=== PATIENT | male | born 1940 | race Caucasian/White ===

== ENCOUNTER 2021-10-26 06:26 | Day surgery (SDC) | payer OTHER ==
[2021-10-22 08:55] LABS: BASOPHILS % (AUTO) 0.9 % (0.0-5.0); EOSINOPHILS % (AUTO) 3.2 % (0.0-8.0); HEMATOCRIT 35.1 % (42-54); LYMPHOCYTES % (AUTO) 12.6 % (21.0-51.0); MEAN CORPUSCULAR HEMOGLOBIN 30.2 pg (27.0-33.0); MEAN CORPUSCULAR HGB CONC 31.1 g/dL (32.0-36.0); MEAN CORPUSCULAR VOLUME 97.2 fL (79-99); MONOCYTES % (AUTO) 10.2 % (3.0-13.0); NEUTROPHILS % (AUTO) 72.8 % (40.0-77.0); PLATELET COUNT (AUTO) 105 K/uL (130-400); RED BLOOD CELL COUNT(AUTO) 3.61 MIL/uL (4.50-6.20); RED CELL DISTRIBUTION WIDTH 14.6 % (11.0-15.5); WHITE BLOOD COUNT (AUTO) 3.4 K/uL (4.8-10.8)
[2021-10-22 09:08] LABS: CREATININE 1.1 mg/dL (0.5-1.5); POTASSIUM 4.2 mmol/L (3.5-5.1)
[2021-10-22 09:10] LABS: INR 2.67 (0.85-1.15); PROTHROMBIN TIME 26.6 SEC (9.6-11.6)
[2021-10-22 09:11] LABS: PARTIAL THROMBOPLASTIN TIME 38.2 SEC (26.3-35.5)
[2021-10-25 10:31] VITALS: BP 114/59
[~2021-10-26] VITALS: Ht 177.8 cm; Wt 67.6 kg
[2021-10-26] VITALS (20 sets, daily range): BP systolic 90–151; BP diastolic 52–98
[~2021-10-26 06:26] MED LIST: 0.9% NACL 500ML IV.SOLN 500 ML IV SCH; AMIO200T68 PO; ATOR40TA69 PO; CETI10TA57 PO; DOXA4TAB3 PO; GABA300C PO; METF750T46 PO; VITAMIN B12 PO; WARF-57 PO; WARF2.5T85 PO; [UNRECOGNIZED DRUG - OTHER] PO
[2021-10-26] MEDS ORDERED: 0.9%NACL 1000ML 1,000 ML IV ONE (07:00)
[2021-10-26] MEDS ORDERED: SUCCINYLCHOLINE 200MG/10ML SYR ONE (07:15)
[2021-10-26] MEDS ORDERED: PROPOFOL 10 MG/ML 20ML VIAL IV ONE ×2 (07:15→07:29)
[2021-10-26] MEDS ORDERED: LIDOCAINE PF 100MG/5ML (2%) SYRINGE 5ML ONE (07:15)
[2021-10-26] MEDS ORDERED: EPHEDRINE SULFATE 50 MG/ML AMPULE ONE (07:15)
[2021-10-26] MEDS ORDERED: FENTANYL CITRATE PF 50 MCG/1 ML 2ML VIAL ONE (07:16)
== END 2021-10-26 09:50 | disposition home or self-care (01) ==
LOC: DAH 06:26
PROVIDERS: ATTEND Student in an Organized Health Care Education/Training Program
DX: I48.3 Typical atrial flutter (principal); I11.0 Hypertensive heart disease with heart failure; I50.20 Unspecified systolic (congestive) heart failure; I25.2 Old myocardial infarction; E78.2 Mixed hyperlipidemia; E11.8 Type 2 diabetes mellitus with unspecified complications; I49.3 Ventricular premature depolarization; Z79.01 Long term (current) use of anticoagulants; Z79.899 Other long term (current) drug therapy; Z87.891 Personal history of nicotine dependence; Z95.2 Presence of prosthetic heart valve; Z95.1 Presence of aortocoronary bypass graft; Z98.890 Other specified postprocedural states
CPT/HCPCS: 36415; 80048; 82948; 85025; 85610; 85730; 87635; 92960; 93005 ×2; 93312; 93325; A4215; A4216; A4221; A4222; A4223 ×3; A4606; A4615; A4663; C9803; J0330; J2001; J2704; J3010; J3490; J7030; 96374; 99156; 99157

== ENCOUNTER 2022-03-21 07:04 | Observation (INO) | payer OTHER ==
[2022-03-16 12:55] LABS: BASOPHILS % (AUTO) 0.8 % (0.0-5.0); EOSINOPHILS % (AUTO) 3.5 % (0.0-8.0); LYMPHOCYTES % (AUTO) 13.1 % (21.0-51.0); MEAN CORPUSCULAR HEMOGLOBIN 31.3 pg (27.0-33.0); MEAN CORPUSCULAR HGB CONC 32.1 g/dL (32.0-36.0); MEAN CORPUSCULAR VOLUME 97.7 fL (79-99); MONOCYTES % (AUTO) 9.4 % (3.0-13.0); NEUTROPHILS % (AUTO) 72.9 % (40.0-77.0); PLATELET COUNT (AUTO) 89 K/uL (130-400); RED BLOOD CELL COUNT(AUTO) 3.48 MIL/uL (4.50-6.20); RED CELL DISTRIBUTION WIDTH 15.9 % (11.0-15.5); WHITE BLOOD COUNT (AUTO) 3.7 K/uL (4.8-10.8)
[2022-03-16 13:08] LABS: INR 2.4 (0.85-1.15); PROTHROMBIN TIME 24.9 SEC (9.6-11.6)
[2022-03-16 13:12] LABS: POTASSIUM 4.8 mmol/L (3.5-5.1)
[2022-03-17 10:56] VITALS: BP 131/69
[2022-03-17] MEDS: CEFAZOLIN SODIUM 1 GM VIAL IVP SCH (13:30)
[2022-03-18] MEDS: CEFAZOLIN SODIUM 1 GM VIAL IVP SCH (13:30)
[2022-03-21] VITALS (10 sets, daily range): BP systolic 128–170; BP diastolic 57–81
[~2022-03-21] VITALS: Ht 172.7 cm; Wt 67.6 kg
[~2022-03-21 07:04] MED LIST changes: -0.9% NACL 500ML IV.SOLN 500 ML IV SCH; +AEC81 PO; +BRAIN SUPPLEMENT PO; +FURO20TA4 PO; -WARF-57 PO; -[UNRECOGNIZED DRUG - OTHER] PO
[2022-03-21] MEDS ORDERED: 0.9%NACL 1000ML 1,000 ML IV ONE (09:22)
[2022-03-21] MEDS ORDERED: ENOX60DI7 SQ (09:58)
[2022-03-21] MEDS ORDERED: MEPERIDINE-PF 25 MG/ML SYG ONE ×2 (10:57→11:55)
[2022-03-21] MEDS ORDERED: BUPIVACAINE/PF 0.25% 30ML VIAL IJ ONE (10:57)
[2022-03-21] MEDS ORDERED: LIDOCAINE HCL-MPF 2% 10ML AMP IJ ONE ×2 (10:57→10:58)
[2022-03-21] MEDS ORDERED: MIDAZOLAM HCL 1 MG/ML 2ML VIAL ONE ×2 (10:57→11:55)
[2022-03-21 11:39] LABS: INR 1.65 (0.85-1.15); PROTHROMBIN TIME 17.5 SEC (9.6-11.6)
[2022-03-21 11:41] LABS: PARTIAL THROMBOPLASTIN TIME 34.7 SEC (26.3-35.5)
[2022-03-21] MEDS ORDERED: WARFARIN SODIUM 5 MG TAB PO SCH (13:00)
[2022-03-21] MEDS ORDERED: ACETAMINOPHEN WITH CODEINE 1 TAB TAB PO PRN (13:00)
[2022-03-21] MEDS: GABAPENTIN 300 MG CAPSULE PO SCH ×2 (14:00→21:18)
[2022-03-21] MEDS ORDERED: CYANOCOBALAMIN (VITAMIN B-12) 1,000 MCG TABLET PO SCH (21:00)
[2022-03-21] MEDS ORDERED: ASPIRIN 81 MG EC TAB PO SCH (21:00)
[2022-03-21] MEDS ORDERED: ATORVASTATIN 40 MG TABLET PO SCH (21:00)
[2022-03-21] MEDS ORDERED: DOXAZOSIN MESYLATE 2 MG TABLET PO SCH (21:00)
[2022-03-21] MEDS: SUPPLEMENT PO SCH (21:00)
[2022-03-22] VITALS: BP 137/84
[2022-03-22 03:48] VITALS: BP 115/53
[2022-03-22 05:24] LABS: INR 1.52 (0.85-1.15); PROTHROMBIN TIME 16.2 SEC (9.6-11.6)
[2022-03-22 08:00] VITALS: BP 121/54
[2022-03-22] MEDS: GABAPENTIN 300 MG CAPSULE PO SCH ×2 (08:17→13:52)
[2022-03-22] MEDS: SUPPLEMENT PO SCH (08:19)
[2022-03-22] MEDS ORDERED: METFORMIN 750 MG PO SCH (09:00)
[2022-03-22] MEDS ORDERED: FUROSEMIDE 20 MG TABLET PO SCH (09:00)
[2022-03-22] MEDS ORDERED: CETIRIZINE HCL 5 MG TABLET PO SCH (09:00)
[2022-03-22] MEDS ORDERED: AMIODARONE 200 MG TABLET PO SCH (09:00)
[2022-03-22 12:00] VITALS: BP 118/56
== END 2022-03-22 17:28 | disposition home or self-care (01) ==
LOC: DAH 07:04 → DAHIP 07:05 → DAH 07:05 → 2DH 15:21
PROVIDERS: ADMIT Internal Medicine Cardiovascular Disease; ATTEND Internal Medicine Cardiovascular Disease
DX: I42.0 Dilated cardiomyopathy (principal); I11.0 Hypertensive heart disease with heart failure; I50.42 Chronic combined systolic (congestive) and diastolic (congestive) heart failure; E11.9 Type 2 diabetes mellitus without complications; I25.10 Atherosclerotic heart disease of native coronary artery without angina pectoris; E78.5 Hyperlipidemia, unspecified; I48.3 Typical atrial flutter; Z95.1 Presence of aortocoronary bypass graft; Z79.82 Long term (current) use of aspirin; Z79.01 Long term (current) use of anticoagulants; Z79.84 Long term (current) use of oral hypoglycemic drugs
CPT/HCPCS: 80048; 85025; 85610 ×3; 85730 ×2; 36415 ×3; 93005; 33249; 71045; C1721; C1896; C1895; G0378 ×28; J0690; J7030; J3490 ×3; J2250 ×2; J2175 ×2; A4215; A4223 ×3; A4222; A4221; A4663; A4216; A4606; 99156; 99157

== ENCOUNTER 2022-04-04 17:37 | Emergency (ER) | payer OTHER ==
[~2022-04-04] VITALS: Ht 180.3 cm; Wt 65.8 kg
[~2022-04-04 17:37] MED LIST changes: -WARF2.5T85 PO
[2022-04-04] MEDS ORDERED: ACETAMINOPHEN 500 MG TABLET PO ONE (18:00)
[2022-04-04 18:18] LABS: BASOPHILS % (AUTO) 0.7 % (0.0-5.0); EOSINOPHILS % (AUTO) 1.9 % (0.0-8.0); HEMATOCRIT 30.8 % (42-54); LYMPHOCYTES % (AUTO) 8.3 % (21.0-51.0); MEAN CORPUSCULAR HEMOGLOBIN 32.1 pg (27.0-33.0); MEAN CORPUSCULAR HGB CONC 31.8 g/dL (32.0-36.0); MONOCYTES % (AUTO) 7.6 % (3.0-13.0); NEUTROPHILS % (AUTO) 80.8 % (40.0-77.0); PLATELET COUNT (AUTO) 123 K/uL (130-400); RED BLOOD CELL COUNT(AUTO) 3.05 MIL/uL (4.50-6.20); RED CELL DISTRIBUTION WIDTH 17.2 % (11.0-15.5); WHITE BLOOD COUNT (AUTO) 4.2 K/uL (4.8-10.8)
[2022-04-04 18:26] LABS: CREATININE 1.1 mg/dL (0.5-1.5); POTASSIUM 4.2 mmol/L (3.5-5.1)
[2022-04-04 18:29] LABS: INR 2.15 (0.85-1.15); PROTHROMBIN TIME 22.4 SEC (9.6-11.6)
[2022-04-04 18:31] LABS: ALBUMIN 3.9 g/dL (3.5-5.0); TOTAL PROTEIN, SERUM 7.5 g/dL (6.0-8.3)
[2022-04-04 19:36] VITALS: BP 135/62
== END 2022-04-04 19:56 | disposition home or self-care (01) ==
LOC: EDH 17:37
DX: S82.831A Other fracture of upper and lower end of right fibula, initial encounter for closed fracture (principal); S00.81XA Abrasion of other part of head, initial encounter; E11.9 Type 2 diabetes mellitus without complications; E78.00 Pure hypercholesterolemia, unspecified; I10 Essential (primary) hypertension; Z79.01 Long term (current) use of anticoagulants; Z79.82 Long term (current) use of aspirin; Z79.84 Long term (current) use of oral hypoglycemic drugs; Z95.1 Presence of aortocoronary bypass graft; Z95.2 Presence of prosthetic heart valve; Z95.810 Presence of automatic (implantable) cardiac defibrillator; W01.0XXA Fall on same level from slipping, tripping and stumbling without subsequent striking against object, initial encounter; Y93.89 Activity, other specified; Y92.89 Other specified places as the place of occurrence of the external cause; Y99.8 Other external cause status
CPT/HCPCS: 29515; 36415; 70450; 71045; 72125; 73080; 73610; 80053; 84484; 85025; 85610; 93005

== ENCOUNTER → 2022-05-02 | Outpatient (CLI) | payer OTHER | END | disposition home or self-care (01) | LOC: RAH 04-29 10:33 | PROVIDERS: ATTEND Orthopaedic Surgery Orthopaedic Surgery of the Spine | DX: S82.64XA Nondisplaced fracture of lateral malleolus of right fibula, initial encounter for closed fracture (principal); M25.571 Pain in right ankle and joints of right foot; X58.XXXA Exposure to other specified factors, initial encounter; Y93.89 Activity, other specified; Y92.89 Other specified places as the place of occurrence of the external cause; Y99.8 Other external cause status | CPT/HCPCS: 73590; 73610 ==

== ENCOUNTER 2022-06-19 03:51 | Emergency (ER) | payer OTHER ==
[~2022-06-19] VITALS: Ht 172.7 cm; Wt 68.0 kg
[2022-06-19 04:35] LABS: BASOPHILS % (AUTO) 0.7 % (0.0-5.0); EOSINOPHILS % (AUTO) 1.5 % (0.0-8.0); HEMATOCRIT 29.2 % (42-54); LYMPHOCYTES % (AUTO) 4.6 % (21.0-51.0); MEAN CORPUSCULAR HEMOGLOBIN 28.9 pg (27.0-33.0); MEAN CORPUSCULAR HGB CONC 30.8 g/dL (32.0-36.0); MEAN CORPUSCULAR VOLUME 93.9 fL (79-99); MONOCYTES % (AUTO) 8.6 % (3.0-13.0); NEUTROPHILS % (AUTO) 84.2 % (40.0-77.0); PLATELET COUNT (AUTO) 131 K/uL (130-400); RED BLOOD CELL COUNT(AUTO) 3.11 MIL/uL (4.50-6.20); RED CELL DISTRIBUTION WIDTH 14.6 % (11.0-15.5); WHITE BLOOD COUNT (AUTO) 4.6 K/uL (4.8-10.8)
[2022-06-19 04:46] LABS: CREATININE 1.4 mg/dL (0.5-1.5); POTASSIUM 3.8 mmol/L (3.5-5.1)
[2022-06-19 04:51] LABS: ALBUMIN 3.5 g/dL (3.5-5.0); TOTAL PROTEIN, SERUM 7.1 g/dL (6.0-8.3)
[2022-06-19 06:51] VITALS: BP 120/53
[2022-06-24] MEDS ORDERED: AMIO200T68 PO (12:50)
[2022-06-24] MEDS ORDERED: WARF-57 PO (12:52)
[2022-06-24] MEDS ORDERED: TAMSULOSIN HCL 0.4 MG CAP.ER.24H PO SCH ×2 (13:00→13:30)
== END 2022-06-19 10:02 | disposition home or self-care (01) ==
LOC: EDH 03:51
DX: Z04.3 Encounter for examination and observation following other accident (principal); E11.9 Type 2 diabetes mellitus without complications; E78.00 Pure hypercholesterolemia, unspecified; I10 Essential (primary) hypertension; Z79.01 Long term (current) use of anticoagulants; Z79.82 Long term (current) use of aspirin; Z79.84 Long term (current) use of oral hypoglycemic drugs; Z79.899 Other long term (current) drug therapy; Z95.1 Presence of aortocoronary bypass graft; Z95.2 Presence of prosthetic heart valve; Z95.810 Presence of automatic (implantable) cardiac defibrillator; X58.XXXA Exposure to other specified factors, initial encounter; Y93.89 Activity, other specified; Y92.89 Other specified places as the place of occurrence of the external cause; Y99.8 Other external cause status
CPT/HCPCS: 36415; 70450; 80053; 84484; 85025; 85730; 93005

== ENCOUNTER → 2022-07-28 | Outpatient (CLI) | payer OTHER ==
[~2022-07-28] MED LIST changes: -CETI10TA57 PO; -DOXA4TAB3 PO; +LIDOCAINE HCL 4% LTA SOL 4 ML VIAL TP ONE; -METF750T46 PO; +WARF-57 PO
== END | disposition home or self-care (01) ==
LOC: WHH 09:24
PROVIDERS: ATTEND Family Medicine
DX: L89.153 Pressure ulcer of sacral region, stage 3 (principal); E11.65 Type 2 diabetes mellitus with hyperglycemia; E78.2 Mixed hyperlipidemia; N40.0 Benign prostatic hyperplasia without lower urinary tract symptoms; I25.10 Atherosclerotic heart disease of native coronary artery without angina pectoris; Z87.891 Personal history of nicotine dependence; Z79.899 Other long term (current) drug therapy
CPT/HCPCS: 11042; 11045

== ENCOUNTER → 2022-08-11 | Outpatient (CLI) | payer OTHER ==
[~2022-08-11] MED LIST changes: -LIDOCAINE HCL 4% LTA SOL 4 ML VIAL TP ONE
== END | disposition home or self-care (01) ==
LOC: SHCH 14:41
PROVIDERS: ATTEND Student in an Organized Health Care Education/Training Program
DX: I50.9 Heart failure, unspecified (principal)
CPT/HCPCS: 93306